=== PATIENT | male | born 1985 | race American Indian/Alaskan Native ===

== ENCOUNTER 2017-10-22 00:14 | Emergency (ER) | payer SELFPAY ==
[2017-10-22 00:24] VITALS: BP 198/115; PULSE 81; RESP 16; TEMP 98.3; O2SAT 100
--- NOTE | 2017-10-22 02:55 | ED PDOC ---
HPI: General Adult Time Seen by Provider: 10/22/17 01:06 Chief Complaint (Nursing): Psychiatric Evaluation Chief Complaint (Provider): Denies complaint - Wants to sleep History Per: Patient Additional Complaint(s): 32 yo male with history of HTN presents with "abdominal pain sometimes". Pt states he wanted to sleep because it makes him feel better. Pt denies abdominal pain currently and reports eating and drinking well. Pt denies SI/HI and is cooperative in ER. Past Medical History Reviewed: Historical Data, Nursing Documentation, Vital Signs Vital Signs: Last Vital Signs Temp 98.3 F 10/22/17 00:20 Pulse 81 10/22/17 00:20 Resp 16 10/22/17 00:20 BP 198/115 H 10/22/17 00:20 Pulse Ox 100 10/22/17 00:20 - Medical History PMH: HTN - Surgical History Surgical History: No Surg Hx - Family History Family History: States: No Known Family Hx - Living Arrangements Living Arrangements: Other - Allergies Allergies/Adverse Reactions: Allergies Allergy/AdvReac Type Severity Reaction Status Date / Time shellfish derived Allergy ANAPHYLAXIS Verified 10/22/17 00:37 Review of Systems ROS Statement: Except As Marked, All Systems Reviewed And Found Negative Constitutional: Negative for: Fever, Chills Gastrointestinal: Negative for: Nausea, Vomiting, Abdominal Pain Psych: Negative for: Anxiety, Depression, Psychosis Physical Exam - Reviewed Nursing Documentation Reviewed: Yes Vital Signs Reviewed: Yes - Physical Exam Appears: Positive for: Well, Non-toxic, No Acute Distress Head Exam: Positive for: ATRAUMATIC, NORMAL INSPECTION, NORMOCEPHALIC Skin: Positive for: Normal Color, Warm, DRY Eye Exam: Positive for: Normal appearance ENT: Positive for: Normal ENT Inspection Neck: Positive for: Normal, Painless ROM Cardiovascular/Chest: Positive for: Regular Rate, Rhythm Respiratory: Positive for: Normal Breath Sounds. Negative for: Accessory Muscle Use, Respiratory Distress Gastrointestinal/Abdominal: Positive for: Normal Exam, Bowel Sounds, Soft. Negative for: Guarding, Rebound Back: Positive for: Normal Inspection Extremity: Positive for: Normal ROM Neurologic/Psych: Positive for: Alert, Oriented - ECG O2 Sat by Pulse Oximetry: 100 Pulse Ox Interpretation: Normal Disposition - Clinical Impression Clinical Impression: Homelessness - Patient ED Disposition Is Patient to be Admitted: No Counseled Patient/Family Regarding: Diagnosis, Need For Followup - Disposition Disposition: Routine/Home Disposition Time: 02:56 Condition: GOOD Instructions: Normal Exam (ED)
== END 2017-10-22 04:25 | disposition home or self-care (01) ==
LOC: H.ER 00:14
DX: R10.9 Unspecified abdominal pain (principal); Z59.0 Homelessness